=== PATIENT | female | born 1995 ===

== ENCOUNTER 2018-10-23 14:22 | Emergency (ER) | payer OTHER, MEDICAID ==
[2018-10-23 14:25] VITALS: BP 119/78; PULSE 105; RESP 18; TEMP 98.2; O2SAT 100; BMI 28.3
== END 2018-10-23 20:51 | disposition left against medical advice (07) ==
LOC: ED 14:22
DX: Z02.89 Encounter for other administrative examinations (principal); Z00.00 Encounter for general adult medical examination without abnormal findings